=== PATIENT | female | born 1940 | race Caucasian/White ===

== ENCOUNTER 2024-12-20 08:40 | Day surgery (SDC) | payer OTHER, SELFPAY ==
--- NOTE | 2024-12-07 12:56 | CM ---
Cm reviewed medical records. CM spoke with patient via live telephone. Patient confirmed demographics. Patient lives independently at [facility]. Patient plans to transition to AL at [facility] post operatively. Patient stated she will have PT at
assisted living. SHe could not name the company that provides PT. Patient stated that nursing supervisior has made arrangements for patient.
Kamla Martinez RN
Managing Member
CM discussed multiple questions regarding her required DME. CM referred patient back to her education packet from [facility].
PLAN: Home to assisted living at [facility]/
[2024-12-12 11:23] LABS: Hematocrit 37.1 % (37.0-47.0); Hemoglobin 12.3 g/dL (12.0-16.0); Mean Corp Hgb Conc. 33.2 g/dL (33.0-37.0); Mean Corpuscular Volume 94.2 fL (81.0-99.0); Platelet Count 264 10^3/uL (130-400); Red Cell Dist. Width 13.3 % (11.5-14.5)
--- NOTE | 2024-12-12 11:34 | SLEEP.APNEA ---
Sleep Apnea Order
-
Patient screened as High Risk for Sleep Apnea on [employer] Questionnaire. Patient referred to [facility] for Pre-Study.

Name: LEIGHA SANDERS
: 1940
Home Phone: Use [email or web address] instead
Cell Phone: [f_Reg Other Phone]
Work Phone:
Address: [address] [place] [address]
City: [place]
State: [place]
Zip: [f_[facility] Zip]
Family Physician: Ekta Stringer
Ordering Provider: Doretha Flor PA-C
[2024-12-12 11:50] LABS: ALT (SGPT) 27 U/L (0-35); AST (SGOT) 30 U/L (14-36); Albumin 4.6 g/dl (3.5-5.0); Alkaline Phosphatase 28 U/L (38-126); Blood Urea Nitrogen 47 mg/dl (7-17); Calcium 9.7 mg/dl (8.4-10.2); Carbon Dioxide 29 mmol/L (22-30); Chloride 102 mmol/L (98-107); Glucose 100 mg/dl (70-99); Potassium 4.5 mmol/L (3.5-5.1); Sodium 139 mmol/L (135-145); Total Protein 7.2 g/dl (6.3-8.2); eGFR > 60.00
[2024-12-12 12:34] LABS: Glycohemoglobin (HgbA1c) 5.4 % (4.0-5.6)
[2024-12-12 14:01] VITALS: BMI 22.3
[2024-12-12 14:48] VITALS: BMI 22.3
[2024-12-20] VITALS (9 sets, daily range): BP systolic 116–139; BP diastolic 62–75; PULSE 72; O2SAT 98; BMI 22.3
[2024-12-20] MEDS: CELEBREX 200 MG PO (10:10)
[2024-12-20] MEDS: TYLENOL 650 MG PO ×3 (10:10→20:50)
[2024-12-20] MEDS: NORMOSOL-R/PLASMALYTE-A 1000 IV ×2 (10:11→15:11)
[2024-12-20 10:22] LABS: Glucose - Point of Care 93 mg/dl (70-99)
--- NOTE | 2024-12-20 13:07 | W.PN.UPDATE ---
Update Note
Progress Note Update
L knee OA s/p L TKA w/ Dr Schuster 12/20/24
- EARLY DISCHARGE
DVT prophylaxis - ASA, b/l venous foot pumps
HTN - + parameters - monitor BP
Pulmonary HTN - reduce hourly IVF to prevent potential fluid overload
Exercise-induced asthma
RAVIN, improving with weight loss
- Monitor O2
- IS
- Duoneb prn
- Decadron to assist with breathing
- Add supplemental O2 HS
GERD - continue PPI therapy
Peripheral neuropathy - add Lyrica HS per patient preference
- Consider increase in Lyrica dosing should HS dosing be ineffective
Left-sided iliotibial tendinitis
Hypercholesterolemia
Mild valvular heart disease
Venous varicosities
Colon polyps
Diverticulosis
Probable remote hepatitis A
Remote migraines
Vertigo
Multilevel degenerative disc disease
Scoliosis
Thyroid nodules
Urge incontinence
Basal and squamous cell carcinoma, status post multiple Mohs
Osteopenia
Depression
Anxiety
Hearing impairment bilaterally
Remote history of tobacco abuse
[2024-12-20] MEDS: ROXICODONE 5 MG PO ×3 (14:11→23:05)
--- NOTE | 2024-12-20 15:00 | PTCARENOTE ---
pt received from PACU to room 2112. pt AAOX3, denies pain at this time. Left knee incision CDI. pt oriented to room and unit. admission questions completed. PT to work with patient.
[2024-12-20] MEDS: PROTONIX 20 MG PO (15:12)
--- NOTE | 2024-12-20 16:33 | OR.RPT ---
Operative Report
Operative Report
Orthopaedic Surgery Operative Note
DATE OF OPERATION: 12/20/2024
PREOPERATIVE DIAGNOSES: Osteoarthritis, left knee.
POSTOPERATIVE DIAGNOSES: Osteoarthritis, left knee.
OPERATION PERFORMED:
1) Left total knee arthroplasty (CPT 40434)
2) Intraosseous administration of analgesic (CPT 12320)
SURGEON: Pedro Schuster MD
ASSISTANTS: Kevyn Garcia who helped with patient and limb positioning and retraction
ANESTHESIA: Spinal by anesthesia plus intraoperative infusion of morphine into the tibial metaphysis by Dr. Schuster
COMPLICATIONS: None.
ESTIMATED BLOOD LOSS: 20mL
DRAINS: None
TOURNIQUET TIME: 40 minutes.
IMPLANTS:
- Gage Persona CR Femur, size 8
- Gage Persona tibia base plate, size D
- Gage Persona medial constrained articular surface, 11 mm
- DJO Drayton bone cement
INDICATIONS: The patient presented to my office with debilitating left knee pain due to osteoarthritis. We reviewed the natural history of this problem, as well as the risks, benefits, and alternatives of various treatment options. The patient
exhausted all nonoperative treatment options and wished to proceed with knee replacement surgery. The patient understood the risks which included, but were not limited to, bleeding, infection, failure to relieve pain, more pain than preop, damage to
blood vessels and nerves, need for reoperation, mechanical failure of the implants, wound healing problems, stiffness, instability, blood clot, pulmonary embolism, myocardial infarction, pneumonia, arrhythmia, CVA, and . The patient accepted
these risks and wished to proceed. All questions were answered, and informed consent was obtained.
PROCEDURE IN DETAIL: The patient was identified in the preoperative holding area. The left knee was identified as the operative site. The patient was taken in the operating room and placed in a supine position on the operating table. Spinal/General
anesthesia was performed. IV antibiotics and tranexamic acid were administered. An SCD was placed on the right lower extremity. A well-padded tourniquet was placed on the proximal thigh. All bony prominences were well padded. The left lower
extremity was prepped and draped in the usual sterile fashion.
We performed a surgical time-out. An interarticular block was performed with local anesthetic with epinephrine. The limb was exsanguinated with an Esmarch bandage, then the tourniquet was inflated to 250 mmHg. I performed interosseous administration
of morphine-saline solution via a Jamshidi style intraosseous needle into the proximal medial tibial metaphysis as described by Handy Bright MD. This was performed to aid in pain control. A midline skin incision was made followed by a medial
parapatellar arthrotomy. A subperiosteal peel was performed on the medial tibia. I excised part of the infrapatellar fat pad to improve our visualization as well as tissue over anterior femur. The patella was everted and the knee was flexed. I
excised the remnants of the anterior and posterior cruciate ligaments as well as tibial and femoral osteophytes with rongeurs. There was full thickness cartilage loss about the trochlea, posterolateral tibia, and posterolateral femur.
The knee was flexed, and the extramedullary tibial cutting guide was aligned. Harris was aligned at neutral, rotation was centered on the tibial tubercle, and coronal alignment was aligned with the mechanical axis of the tibia and center of the ankle
joint. The cut height was 10mm off the lateral tibia joint surface. The guide was secured into place. The MCL and LCL were protected. The tibia surface was cut. The cut surface was inspected after removal to ensure appropriate height and slope based
on the preoperative plan. The cut was checked with a drop raquel. It was centered nicely at the ankle.
A drill was used to open the femoral canal. The intramedullary distal femoral cutting guide was inserted into the femur. This was set at 5 degrees +0. This was secured into place with three pins. The cut level was checked with an yoli wing. The
distal femur was cut through the cutting guide. The IM guide was reinserted to double check that the level of resection was flush and in appropriate alignment.
Rivka's line and the transepicondylar axis were marked on the femur. The femoral sizing guide was applied to the anterior femur. Pins were inserted, and the 4-in-1 cutting guide was applied and secured into place. The rotation was compared to
Menard's line, the transepicondylar axis, and the neutral tibia cut and was found to be appropriate. The width was checked and found to be appropriate and lateralized on the femur. The anterior, posterior, and chamfur cuts were made. A lamina
nipple threader was used to open the flexion gap, and posterior osteophytes were removed with a curved osteotome. The remnant medial and lateral meniscus were also removed. I prophylactically cauterized the lateral geniculate arteries. A 10mm spacer block
was applied to the flexion gap and was noted to be balanced medially and laterally. The knee was extended, and the block showed symmetric to extension and flexion gaps.
The tibia was exposed and sized. Rotation was set in line with the tibial tubercle and congruent with the femur. The trial was secured into place with two pins. The trial femur was impacted into place, and a trial articular surface was placed. The
knee was taken through range of motion and noted to be stable throughout the arc of motion without gaping or excess tension. The patella tracked centrally throughout the arc of motion without need for further releases. No full thickness cartilage
defects.
The trials were removed. The tibia keel was prepared with the punch and the drill. The bone surfaces were irrigated with sterile saline and dried. The cement was mixed in a vacuum mixer. Cement gun was used to apply cement to the tibial surface and
the undersurface of the tibial implant. Cement was pressurized into the tibial canal and tibia surface. The tibial component was impacted into place. Excess cement was removed. Cement was applied to the femoral surface and the femoral component. The
femoral component was impacted into place, and excess cement removed. A trial articular surface was inserted, and the knee was extended while the cement polymerized. The tourniquet was let down, and meticulous hemostasis was achieved. Dilute
betadine was poured into the wound and allowed to soak for 3 minutes. The knee was irrigated with copious normal saline.
Once the cement was polymerized, the trial articular surface was removed. Any excess cement was removed. The knee was trialed, and the final articular surface was selected and inserted into the tibial locking mechanism. The knee was reduced. A fresh
drape was applied to the surgical field.
The arthrotomy was closed with 0-PDS. Once closed, an interarticular block was performed with local anesthetic with epi. The deep dermal layer was closed with 2-0 PDS, and the subcuticular skin was closed with 3-0 monocryl. A Dermabond Prineo
dressing was applied to the skin in full flexion. Once this was completely dry, a sterile waterproof dressing was applied.
The anesthesia team performed an adductor canal block in the OR. The patient awoke from anesthesia without any difficulties. The sponge and instrument counts were correct x2 at the end of the case.
Robert Schuster MD
[2024-12-20] MEDS: ASPIRIN 325 MG PO (17:13)
[2024-12-20] MEDS: ANCEF 5 IV (17:14)
[2024-12-20] MEDS: COLACE 100 MG PO (20:49)
[2024-12-20] MEDS: SENOKOT PO (20:50)
[2024-12-20] MEDS: ZYRTEC 10 MG PO (20:50)
[2024-12-20] MEDS: ZESTRIL PO (20:51)
[2024-12-20] MEDS: DECADRON 4 MG PO (20:51)
[2024-12-20] MEDS: OLOPATADINE 0.1% OPHTHALMIC SOLUTION OPHTH (20:52)
[2024-12-20] MEDS: EFFEXOR 37.5 MG PO (20:53)
[2024-12-20] MEDS: LIPITOR 10 MG PO (20:54)
[2024-12-20] MEDS: LYRICA 50 MG PO (20:57)
[2024-12-20] MEDS: BACTROBAN 2% OINTMENT 1 APPLIC NASAL (23:01)
[2024-12-21] MEDS: TYLENOL PO ×2 (01:40→04:55)
[2024-12-21] MEDS: ANCEF 5 IV (02:15)
[2024-12-21 03:10] VITALS: BP 127/62
[2024-12-21 05:50] VITALS: BP 117/59
[2024-12-21] MEDS: ROXICODONE 5 MG PO (05:57)
[2024-12-21 07:10] VITALS: BP 148/78
[2024-12-21 08:25] VITALS: BP 123/74; PULSE 77
--- NOTE | 2024-12-21 08:51 | W.PN.ORTHO ---
Today's Communication / Plan
-
D/c this AM since clinically stable, did well w/ PT and OT.
Assessment
.
Distal Motor Intact: Yes
Dressing:
Clean, dry and intact.
Assessment:
L knee OA s/p L TKA w/ Dr Schuster 12/20/24
- EARLY DISCHARGE
DVT prophylaxis - ASA, b/l venous foot pumps
HTN - + parameters - BPs overall stable
Pulmonary HTN - reduced hourly IVF to prevent potential fluid overload
- No s/sx of fluid overload prior to d/c
Exercise-induced asthma
RAVIN, improving with weight loss
- O2 stable on RA w/ measures below
- IS
- Duoneb prn
- Decadron to assist with breathing
- Added supplemental O2 HS while inpatient
GERD - continue PPI therapy
Peripheral neuropathy - added Lyrica HS per patient preference
- Consider increase in Lyrica dosing should HS dosing be ineffective
Left-sided iliotibial tendinitis
Hypercholesterolemia
Mild valvular heart disease
Venous varicosities
Colon polyps
Diverticulosis
Probable remote hepatitis A
Remote migraines
Vertigo
Multilevel degenerative disc disease
Scoliosis
Thyroid nodules
Urge incontinence
Basal and squamous cell carcinoma, status post multiple Mohs
Osteopenia
Depression
Anxiety
Hearing impairment bilaterally
Remote history of tobacco abuse
Plan
.
Surgery / Date: L TKA w/ Dr Schuster 12/20/24
DVT Prophylaxis: Aspirin
Activity:
Out of bed.
PT/OT
Subjective
.
.:
Patient resting comfortably in her chair.
L knee pain overall controlled w/ current pain meds.
Denies any new significant complaints.
Eager for potential d/c today.
Vital Signs and Labs
.
Vital Signs and Labs:
Lab Results
12/12/24 10:51
12/12/24 10:51
Temp Pulse Resp BP Pulse Ox
98.7 F 78 18 148/78 99
12/21/24 07:10 12/21/24 07:10 12/21/24 07:10 12/21/24 07:10 12/21/24 07:10
Non-invasive Hgb result: 11.4
Physical Exam
-
HEENT: No pallor, cyanosis, or jaundice. Throat clear.
NECK: Supple. No JVD.
RESPIRATORY: Lungs clear to auscultation.
CVS: S1, S2 normal. RRR.�
ABDOMEN: Soft, non-tender. No distension.
EXTREMITIES: Strength equal, no calf pain with palpation/dorsiflexion. Calves soft.
SLIMER: AOx3. No focal deficits. 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
[2024-12-21] MEDS: PROTONIX 20 MG PO (08:56)
[2024-12-21] MEDS: TYLENOL 650 MG PO (08:56)
[2024-12-21] MEDS: DECADRON 4 MG PO (08:57)
[2024-12-21] MEDS: ASPIRIN 325 MG PO (08:57)
[2024-12-21] MEDS: EFFEXOR 50 MG PO (08:57)
[2024-12-21] MEDS: ZESTRIL 10 MG PO (08:57)
[2024-12-21] MEDS: SENOKOT 17.2 MG PO (08:57)
[2024-12-21] MEDS: COLACE 100 MG PO (08:57)
[2024-12-21] MEDS: CELEBREX 200 MG PO (08:57)
[2024-12-21] MEDS: EFFEXOR 25 MG PO (08:57)
[2024-12-21] MEDS: ZYRTEC 10 MG PO (08:57)
[2024-12-21 08:58] VITALS: BP 116/75; PULSE 73; O2SAT 97
[2024-12-21] MEDS: BACTROBAN 2% OINTMENT 1 APPLIC NASAL (08:58)
[2024-12-21] MEDS: OLOPATADINE 0.1% OPHTHALMIC SOLUTION 1 DROP OPHTH (08:59)
--- NOTE | 2024-12-21 09:00 | W.DS.TRANS ---
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
-
Discharge Instructions:
Discharge Diagnosis/Procedures L knee OA s/p L TKA w/ Dr Schuster 12/20/24
Diet Regular
Additional Diets Adequate hydration, minimize opioids, and wear
TEDs stockings to prevent low blood pressure/
dizziness.
Activity As tolerated,With Walker
Driving Restrictions Not until seen by your Dr
Bathing Restrictions OK to Shower
Other Services PT
Wound Care Leave dressing on until seen by surgeon's office
for follow-up in 2 weeks
Instructions:
Stand-Alone Forms: Total Hip/Knee Replacement D/C
Changes to Home Medications: Yes
Discharge Medications:
DC Medications w/original date entered in [facility]
albuterol sulfate 90 mcg/actuation aerosol inhaler (Ventolin HFA) 2 puff inhalation Q6H PRN SOB 12/11/24
atorvastatin 10 mg tablet 10 mg PO HS High Cholesterol 12/11/24
azelastine 0.05 % eye drops 1 drp ophthalmic (eye) BID allergy 12/11/24
cetirizine 10 mg tablet 10 mg PO BID 12/11/24
denosumab 60 mg/mL subcutaneous syringe (Prolia) 60 mg SC [id number] 12/11/24
magnesium 200 mg tablet 600 mg PO DAILY Supplement 12/11/24
multivitamin-ferrous fumarate-folic acid 18 mg-400 mcg tablet (Centrum Women) 1 tab PO DAILY Supplement 12/11/24
omeprazole 10 mg capsule,delayed release 10 mg PO DAILY Gastrointestinal Issue 12/11/24
tirzepatide 10 mg/0.5 mL subcutaneous pen injector (Mounjaro) 10 mg SC QWEEK 12/11/24
trazodone 50 mg tablet 50 mg PO HS Mental Health/Anxiety 12/11/24
venlafaxine 37.5 mg tablet 37.5 mg PO HS Mental Health/Anxiety 12/11/24
venlafaxine 75 mg tablet 75 mg PO DAILY Mental Health/Anxiety 12/11/24
mupirocin 2 % topical ointment 1 applic intranasal BID #1 tube 12/12/24
celecoxib 200 mg capsule (Celebrex) 200 mg PO DAILY #14 caps 12/13/24
dexamethasone 4 mg tablet 4 mg PO BID Anti-inflammatory #7 tabs 12/13/24
ondansetron HCl 4 mg tablet 4 mg PO Q6H PRN nausea and vomiting #30 tabs 12/13/24
oxycodone 5 mg tablet 5 - 10 mg (1 - 2 x 5 mg) PO Q6H PRN moderate-severe pain #30 tabs 12/13/24
pregabalin 50 mg capsule (Lyrica) 50 mg PO HS neuropathic pain/sleep #10 caps 12/13/24
acetaminophen 325 mg tablet 650 mg (2 x 325 mg) PO Q4HWA #1 tab 12/21/24
aspirin 325 mg tablet 325 mg PO DAILY #30 tabs 12/21/24
docusate sodium 100 mg capsule 100 mg PO BID #30 caps 12/21/24
lisinopril 10 mg tablet 10 mg PO BID Blood Pressure #1 tab 12/21/24
lorazepam 0.5 mg tablet 0.5 mg PO DAILYPRN PRN anxiety #1 tab 12/21/24
sennosides 8.6 mg tablet (Demetrice-emre) 17.2 mg (2 x 8.6 mg) PO BID #30 tabs 12/21/24
Home Medication Changes
celecoxib 200 mg capsule (Celebrex) 200 mg PO DAILY #14 caps 12/13/24
dexamethasone 4 mg tablet 4 mg PO BID Anti-inflammatory #7 tabs 12/13/24
ondansetron HCl 4 mg tablet 4 mg PO Q6H PRN nausea and vomiting #30 tabs 12/13/24
oxycodone 5 mg tablet 5 - 10 mg (1 - 2 x 5 mg) PO Q6H PRN moderate-severe pain #30 tabs 12/13/24
pregabalin 50 mg capsule (Lyrica) 50 mg PO HS neuropathic pain/sleep #10 caps 12/13/24
acetaminophen 325 mg tablet 650 mg (2 x 325 mg) PO Q4HWA #1 tab 12/21/24
aspirin 325 mg tablet 325 mg PO DAILY #30 tabs 12/21/24
docusate sodium 100 mg capsule 100 mg PO BID #30 caps 12/21/24
sennosides 8.6 mg tablet (Demetrice-emre) 17.2 mg (2 x 8.6 mg) PO BID #30 tabs 12/21/24
Pending Results: No
--- NOTE | 2024-12-21 09:26 | CM ---
CM met with patient. Confirmed that patient will be staying at AL for about a week and then return to her home.
PLAN' Home to AL, with in home PT.
== END 2024-12-21 10:39 | disposition home or self-care (01) ==
LOC: SDS 08:40
PROVIDERS: ATTENDING PHYSICIAN Orthopaedic Surgery; FAMILY PHYSICIAN Internal Medicine; OTHER PHYSICIAN Physician Assistant; REFERRING PHYSICIAN Internal Medicine Cardiovascular Disease
DX: M17.12 Unilateral primary osteoarthritis, left knee (principal)
CPT/HCPCS: 27447; 36680; 36415; 73560; 80053; 82962; 83036; 85027; 87070; 97110; 97116; 97162; 97166; 97535; C1713; C1776